=== PATIENT | female | born 1975 | race Caucasian/White ===

== ENCOUNTER 2022-02-27 18:49 | Observation (INO) ==
[2022-02-27 20:15] LABS: Troponin I High Sensitivity 7.7 pg/ml (0-14)
[2022-02-27 20:26] LABS: Alanine Aminotransferase 17 U/L (7-52); Albumin Globulin Ratio 1.4 (0.9-2); Alkaline Phosphatase 39 U/L (34-104); Anion Gap 9 (3-11); BUN Creatinine Ratio 16.5 (10-20); Bilirubin,Total 0.4 mg/dl (0.2-1.0); Blood Urea Nitrogen 13 mg/dl (6-23); Calcium 6.7 mg/dl (8.5-10.1); Carbon Dioxide 27 mmol/L (21-32); Chloride 103 mmol/L (98-107); Creatinine Clr Calc Pharmacy 100.5 ml/min; Est GFR (African American) 102.6 ml/min; Est GFR (Non-African American) 88.5 ml/min; Globulin 2.8 gm/dl (2.5-4.0); Glucose 96 mg/dl (70-99(Fasting)); Sodium 139 mmol/L (136-145); Total Protein 6.8 gm/dl (6.0-8.3)
[2022-02-27] MEDS ORDERED: CALCIUM CHLORIDE 10% 1,000 MG in DEXTROSE 5% 50 ML IV STA (20:43)
[2022-02-27] MEDS ORDERED: SODIUM CHLORIDE 0.9% 1000ML 1,000 ML IV ONE (20:43)
[2022-02-27] MEDS ORDERED: LORazepam 2 MG/2 ML SYR IV STA (20:43)
--- NOTE | 2022-02-27 20:47 | Emergency Department Note ---
Impression & Plan Hypocalcemia, Hypomagnesemia ED Provider Note NAME: KATHIE TORRES AGE: 46 SEX: F : 1975 ARRIVES VIA: Walk-In INFORMANT: Patient, ED PROVIDER(S): Gianfranco Trent DO CHIEF COMPLAINT: Numbness and tingling HPI: The patient is a 46-year-old female who presented to the emergency department for an evaluation of numbness and tingling. The patient started noticing numbness and tingling over the course the last few days. She is 2 days status post thyroidectomy. The patient had thyroidectomy due to multiple thyroid nodules at [facility]. The patient states that over the last few days she has noticed numbness and tingling over both lower extremities. She also notices jerking sensation with her arms and legs and she states her muscles feel tense. She denies having any shortness of breath. She does complain of so me chest tightness which she thinks is across her anterior chest. She denies have any lower extremity swelling. She has no abdominal pain. She denies having any fever. ROS: See above HPI for pertinent positives & negatives. A total of 10 systems reviewed and were otherwise negative. PAST MEDICAL HISTORY: See Below PAST SURGICAL HISTORY: See Below FAMILY HISTORY: See Below SOCIAL HISTORY: See Below HOME MEDICATIONS: See Below ALLERGIES: See Below VITALS: See Below PHYSICAL EXAMINATION: GENERAL: Patient is awake alert in no acute distress patient is resting comfo rtably and showing no signs of anxiety EYES: The conjunctivae are clear. The pupils are round and reactive. EARS, NOSE, MOUTH AND THROAT: The nose is without any evidence of any deformity. NECK: The neck is nontender and supple. RESPIRATORY: Normal respiratory effort is noted there is no evidence of wheezing rhonchi or rales CARDIOVASCULAR: Regular rate and rhythm noted there no murmurs rubs or gallops normal S1 normal S2. GASTROINTESTINAL: The abdomen is soft. Abdomen is nontender. MUSCULOSKELETAL/EXTREMITIES: There is no evidence of gross deformity full range of motion is noted in the hips and shoulders. SKIN: There is no obvious evidence of any rash. There are no petechiae, pallor o r cyanosis noted. NEUROLOGIC: Patient is awake alert and oriented x3 strength is symmetric patellar reflexes are 2+ bilaterally. Positive Cvosteks sign MEDICAL DECISION MAKING: Patient is a 46-year-old female who presented to the emergency department for an evaluation of muscle excitability. The patient recently had her thyroid removed. The patient was found to have symptomatic hypocalcemia. She was treated with IV calcium and IV magnesium in the emergency department. I discussed patient's laboratory and radiographic studies with her. I also di sc[facility] have agreed to evaluate the patient in the emergency department for further management and disposition. Triage Nursing notes reviewed. Prior medical records reviewed Vital Signs: reviewed and remarkable for no significant abnormalities Differential diagnosis: Infection, dehydration, metabolic abnormality, hypo/hyperglycemia, electrolyte disturbance, anemia, hypoxia, cardiac sources, intracerebral event, toxicologic, neurologic, as well as other pathologies. ER treatment provided: See below Diagnostics interpreted by me: ECG: EG was obtained in the emergency department. My interpretation is normal sinus rhythm at 80 bpm. There is no ectopy. QTC prolongation was noted. No previous tracing was available. Cardiac Monitoring: An order was placed for continuous cardiac monitoring. The monitor shows a rate of 70 bpm with sinus rhythm. Laboratory studies: As stated above and show below. Imaging studies: See below Consultation(s): I discussed this case with Dr. Huertas who [facility]. Past Med/Surg History Medical History (Updated 02/27/22 @ 21:41 by Gianfranco Trent DO) Thyroid nodule Surgical History (Updated 02/27/22 @ 21:10 by Tessie Fang DO) H/O thyroidectomy Social History Smoking Status: Current every day smoker Preferred Language: [place] Feels Safe at Home: Yes Results & Data (ED) Vital Signs Vital Signs - 24 hr 02/27/22 18:58 02/27/22 20:50 02/27/22 20:50 Temperature 36.5 C Temperature Source Temporal Artery Scan Pulse Rate 91 H Pulse Rate [Apical] 70 Pulse Rhythm [Apical] Regular Pulse Strength [Apical] Normal Respiratory Rate 18 20 Respiratory Effort / Characteristics Non-Labored Respiratory Depth Normal Normal Respiratory Pattern Regular Blood Pressure 134/81 Blood Pressure [Right Arm] 140/92 Blood Pressure Mean 98 Blood Pressure Mean [Right Arm] 108 Blood Pressure Position [Right Arm] Sitting Pulse Oximetry 96 98 Oxygen Delivery Method Room Air Room Air Room Air Sepsis New/Unexplained Change in Mental Status N/A Sepsis Action Taken by Nursing No Action Required Home Medications Current Medication List: was personally reviewed by me Laboratory Data Attestation: I reviewed the patient's lab results. Result diagrams: 02/27/22 20:29 02/27/22 20:29 Lab Results 02/27/22 02/27/22 02/27/22 Range/Units 19:30 19:30 19:30 WBC Cancelled RBC Cancelled Hgb Cancelled Hct Cancelled MCV Cancelled MCH Cancelled MCHC Cancelled RDW Std Deviation Cancelled RDW Coeff of Dory Cancelled Plt Count Cancelled MPV Cancelled Immature Gran % (Auto) Cancelled Neut % (Auto) Cancelled Lymph % (Auto) Cancelled Coffey % (Auto) Cancelled Eos % (Auto) Cancelled Baso % (Auto) Cancelled Neut # (Auto) Cancelled Lymph # (Auto) Cancelled Coffey # (Auto) Cancelled Eos # (Auto) Cancelled Baso # (Auto) Cancelled Immature Gran # (Auto) Cancelled Absolute Nucleated RBC Cancelled Nucleated RBC % (auto) Cancelled Neutrophils % (Manual) Cancelled Band Neutrophils % Cancelled Lymphocytes % (Manual) Cancelled Prolymphocyte % Cancelled Reactive Lymphs % (Man) Cancelled Monocytes % (Manual) Cancelled Eosinophils % (Manual) Cancelled Basophils % (Manual) Cancelled Metamyelocytes % (Man) Cancelled Myelocytes % (Man) Cancelled Promyelocytes % (Man) Cancelled Blast Cells % (Manual) Cancelled Plasma Cell % (Manual) Cancelled Other Cells % Cancelled Nucleated RBC % Cancelled Neutrophils # (Manual) Cancelled Band Neutrophils # Cancelled Total Absolute Neuts Cancelled Lymphocytes # (Manual) Cancelled Prolymphocyte # Cancelled Reactive Lymphs # Cancelled Total Abs Lymphocytes Cancelled Monocytes # (Manual) Cancelled Eosinophils # (Manual) Cancelled Basophils # (Manual) Cancelled Metamyelocytes # (Man) Cancelled Myelocytes # (Manual) Cancelled Promyelocytes # (Man) Cancelled Blast Cells # (Man) Cancelled Plasma Cell # (Manual) Cancelled Other Cells # Cancelled Nucleated RBCs # (Man) Cancelled Hypersegmented Neuts Cancelled Hyposegmented Neuts Cancelled Hypogranular Neuts Cancelled Large Granular Lymphs Cancelled # Lrg Granular Lymphs Cancelled Hairy Cells Cancelled Smudge Cells Cancelled Toxic Granulation Cancelled Toxic Vacuolation Cancelled Dohle Bodies Cancelled Kole Rods Cancelled Platelet Estimate Cancelled Hypogranular Platelets Cancelled Clumped Platelets Cancelled Giant Platelets Cancelled Platelet Satelliting Cancelled RBC Morphology Cancelled Polychromasia Cancelled Hypochromasia Cancelled Poikilocytosis Cancelled Basophilic Stippling Cancelled Anisocytosis Cancelled Microcytosis Cancelled Macrocytosis Cancelled Spherocytes Cancelled Pappenheimer Bodies Cancelled Sickle Cells Cancelled Target Cells Cancelled Tear Drop Cells Cancelled Ovalocytes Cancelled Stomatocytes Cancelled Ben[place] Bodies Cancelled Echinocytes Cancelled Acanthocytes (Spur) Cancelled Rouleaux Cancelled RBC Agglutinates Cancelled Schistocytes Cancelled Sezary Cell Cancelled PT Cancelled INR Cancelled APTT Cancelled PTT Ratio Cancelled Sodium 139 (136-145) mmol/L Potassium TNP Chloride 103 (98-107) mmol/L Carbon Dioxide 27 (21-32) mmol/L Anion Gap 9 (3-11) BUN 13 (6-23) mg/dl Creatinine 0.79 (0.6-1.2) mg/dl Est Cr Clr Drug Dosing 100.5 ml/min Est GFR ( Amer) 102.6 ml/min Est GFR (Non-Af Amer) 88.5 ml/min BUN/Creatinine Ratio 16.5 (10-20) Glucose 96 (70-99(Fasting)) mg/dl Calcium 6.7 L (8.5-10.1) mg/dl Ionized Calcium (1.12-1.32) mmol/L Magnesium (1.7-2.4) mg/dl Total Bilirubin 0.4 (0.2-1.0) mg/dl AST TNP ALT 17 (7-52) U/L Alkaline Phosphatase 39 (34-104) U/L Troponin I High Sens 7.7 (0-14) pg/ml Total Protein 6.8 (6.0-8.3) gm/dl Albumin 4.0 (3.4-5.0) gm/dl Globulin 2.8 (2.5-4.0) gm/dl Albumin/Globulin Ratio 1.4 (0.9-2) TSH (0.300-4.500) uIu/ml Blood Parasites ID Cancelled 09/02/27/22 02/27/22 Range/Units 19:30 20:29 20:29 WBC 9.49 RBC 4.43 Hgb 13.6 Hct 40.5 MCV 91.4 MCH 30.7 MCHC 33.6 RDW Std Deviation 46.0 RDW Coeff of Dory 13.5 Plt Count 214 MPV 10.4 Immature Gran % (Auto) 0.4 Neut % (Auto) 62.4 Lymph % (Auto) 22.8 Coffey % (Auto) 8.4 Eos % (Auto) 5.4 Baso % (Auto) 0.6 Neut # (Auto) 5.92 Lymph # (Auto) 2.16 Coffey # (Auto) 0.80 Eos # (Auto) 0.51 H Baso # (Auto) 0.06 Immature Gran # (Auto) 0.04 H Absolute Nucleated RBC Nucleated RBC % (auto) Neutrophils % (Manual) Band Neutrophils % Lymphocytes % (Manual) Prolymphocyte % Reactive Lymphs % (Man) Monocytes % (Manual) Eosinophils % (Manual) Basophils % (Manual) Metamyelocytes % (Man) Myelocytes % (Man) Promyelocytes % (Man) Blast Cells % (Manual) Plasma Cell % (Manual) Other Cells % Nucleated RBC % Neutrophils # (Manual) Band Neutrophils # Total Absolute Neuts Lymphocytes # (Manual) Prolymphocyte # Reactive Lymphs # Total Abs Lymphocytes Monocytes # (Manual) Eosinophils # (Manual) Basophils # (Manual) Metamyelocytes # (Man) Myelocytes # (Manual) Promyelocytes # (Man) Blast Cells # (Man) Plasma Cell # (Manual) Other Cells # Nucleated RBCs # (Man) Hypersegmented Neuts Hyposegmented Neuts Hypogranular Neuts Large Granular Lymphs # Lrg Granular Lymphs Hairy Cells Smudge Cells Toxic Granulation Toxic Vacuolation Dohle Bodies Kole Rods Platelet Estimate Hypogranular Platelets Clumped Platelets Giant Platelets Platelet Satelliting RBC Morphology Polychromasia Hypochromasia Poikilocytosis Basophilic Stippling Anisocytosis Microcytosis Macrocytosis Spherocytes Pappenheimer Bodies Sickle Cells Target Cells Tear Drop Cells Ovalocytes Stomatocytes Benite[place] Bodies Echinocytes Acanthocytes (Spur) Rouleaux RBC Agglutinates Schistocytes Sezary Cell PT 10.9 INR 1.0 APTT 26.9 PTT Ratio 1.0 Sodium (136-145) mmol/L Potassium Chloride (98-107) mmol/L Carbon Dioxide (21-32) mmol/L Anion Gap (3-11) BUN (6-23) mg/dl Creatinine (0.6-1.2) mg/dl Est Cr Clr Drug Dosing ml/min Est GFR ( Amer) ml/min Est GFR (Non-Af Amer) ml/min BUN/Creatinine Ratio (10-20) Glucose (70-99(Fasting)) mg/dl Calcium (8.5-10.1) mg/dl Ionized Calcium (1.12-1.32) mmol/L Magnesium (1.7-2.4) mg/dl Total Bilirubin (0.2-1.0) mg/dl AST ALT (7-52) U/L Alkaline Phosphatase (34-104) U/L Troponin I High Sens (0-14) pg/ml Total Protein (6.0-8.3) gm/dl Albumin (3.4-5.0) gm/dl Globulin (2.5-4.0) gm/dl Albumin/Globulin Ratio (0.9-2) TSH 0.236 L (0.300-4.500) uIu/ml Blood Parasites ID 02/27/22 02/27/22 02/27/22 Range/Units 20:29 20:29 21:03 WBC RBC Hgb Hct MCV MCH MCHC RDW Std Deviation RDW Coeff of Dory Plt Count MPV Immature Gran % (Auto) Neut % (Auto) Lymph % (Auto) Coffey % (Auto) Eos % (Auto) Baso % (Auto) Neut # (Auto) Lymph # (Auto) Coffey # (Auto) Eos # (Auto) Baso # (Auto) Immature Gran # (Auto) Absolute Nucleated RBC Nucleated RBC % (auto) Neutrophils % (Manual) Band Neutrophils % Lymphocytes % (Manual) Prolymphocyte % Reactive Lymphs % (Man) Monocytes % (Manual) Eosinophils % (Manual) Basophils % (Manual) Metamyelocytes % (Man) Myelocytes % (Man) Promyelocytes % (Man) Blast Cells % (Manual) Plasma Cell % (Manual) Other Cells % Nucleated RBC % Neutrophils # (Manual) Band Neutrophils # Total Absolute Neuts Lymphocytes # (Manual) Prolymphocyte # Reactive Lymphs # Total Abs Lymphocytes Monocytes # (Manual) Eosinophils # (Manual) Basophils # (Manual) Metamyelocytes # (Man) Myelocytes # (Manual) Promyelocytes # (Man) Blast Cells # (Man) Plasma Cell # (Manual) Other Cells # Nucleated RBCs # (Man) Hypersegmented Neuts Hyposegmented Neuts Hypogranular Neuts Large Granular Lymphs # Lrg Granular Lymphs Hairy Cells Smudge Cells Toxic Granulation Toxic Vacuolation Dohle Bodies Kole Rods Platelet Estimate Hypogranular Platelets Clumped Platelets Giant Platelets Platelet Satelliting RBC Morphology Polychromasia Hypochromasia Poikilocytosis Basophilic Stippling Anisocytosis Microcytosis Macrocytosis Spherocytes Pappenheimer Bodies Sickle Cells Target Cells Tear Drop Cells Ovalocytes Stomatocytes Benite[place] Bodies Echinocytes Acanthocytes (Spur) Rouleaux RBC Agglutinates Schistocytes Sezary Cell PT INR APTT PTT Ratio Sodium (136-145) mmol/L Potassium 3.5 Chloride (98-107) mmol/L Carbon Dioxide (21-32) mmol/L Anion Gap (3-11) BUN (6-23) mg/dl Creatinine (0.6-1.2) mg/dl Est Cr Clr Drug Dosing ml/min Est GFR ( Amer) ml/min Est GFR (Non-Af Amer) ml/min BUN/Creatinine Ratio (10-20) Glucose (70-99(Fasting)) mg/dl Calcium (8.5-10.1) mg/dl Ionized Calcium 0.81 L (1.12-1.32) mmol/L Magnesium 1.6 L (1.7-2.4) mg/dl Total Bilirubin (0.2-1.0) mg/dl AST 14 ALT (7-52) U/L Alkaline Phosphatase (34-104) U/L Troponin I High Sens (0-14) pg/ml Total Protein (6.0-8.3) gm/dl Albumin (3.4-5.0) gm/dl Globulin (2.5-4.0) gm/dl Albumin/Globulin Ratio (0.9-2) TSH (0.300-4.500) uIu/ml Blood Parasites ID Administered Medications Sodium Chloride (Nss 1000ml) 1,000 mls @ 999 mls/hr IV .[id number] ONE Stop: 02/27/22 21:43 Last Infusion: 02/27/22 21:29 Dose: 0 mls/hr Documented By: Admin: 02/27/22 21:06 Dose: 999 mls/hr Documented By: RSL Discontinued Medications Calcium Chloride 1,000 mg/ (Dextrose) 60 mls @ 240 mls/hr IV NOW STA Stop: 02/27/22 20:57 Last Admin: 02/27/22 21:28 Dose: 240 mls/hr Documented By: RSL Lorazepam (Lorazepam 2 Mg/1 Ml Vial) 1 mg IV NOW STA; Protocol Stop: 02/27/22 20:44 Last Admin: 02/27/22 21:06 Dose: 1 mg Documented By: RSL Imaging Data Attestation: I personally reviewed and interpreted this imaging study as justin monge: My Impression: 1 view chest x-ray was obtained in the emergency department. My interpretation is heart size is normal, no definite filtrate, no free air, no acute disease. Discharge Plan Visit Data Chief Complaint: Chest Pain Stated Complaint: THYROID ECTOMY 02/20, CHEST PAIN, TIGGLING ED Provider: Gianfranco Trent Discharge Problem: Hypocalcemia, Hypomagnesemia Patient Disposition: Being Evaluated by Hospitalist Forms Stand Alone Forms: My [facility] Referrals Referrals: PCP,NO [Physician] -
[2022-02-27 20:58] LABS: Partial Thromboplastin Time 26.9 Seconds (21.0-31.0); Prothrombin Time 10.9 Seconds (9.0-12.0)
[2022-02-27 21:02] LABS: Basophils # (auto) 0.06 K/uL (0-0.2); Basophils % (auto) 0.6 %; Eosinophils # (auto) 0.51 K/uL (0-0.50); Eosinophils % (auto) 5.4 %; Hematocrit (blood only) 40.5 % (34.1-44.9); Hemoglobin 13.6 g/dl (12.0-16.0); Immature Granulocytes # (auto) 0.04 K/uL (0.00-0.02); Immature Granulocytes % (auto) 0.4 %; Lymphocytes # (auto) 2.16 K/uL (1.2-3.4); Lymphocytes % (auto) 22.8 %; Mean Corpuscular Hemoglobin 30.7 pg (25.0-34.0); Mean Corpuscular Hgb Conc 33.6 g/dL (32.0-36.0); Mean Corpuscular Volume 91.4 fL (80.0-100.0); Mean Platelet Volume 10.4 fL (9.4-12.3); Monocytes % (auto) 8.4 %; Neutrophils # (auto) 5.92 K/uL (1.4-6.5); Neutrophils % (auto) 62.4 %; Platelet Count 214 K/uL (130-400); RDW Coefficient of Variation 13.5 % (11.5-14.5); Red Blood Count 4.43 M/uL (3.93-5.22); White Blood Count 9.49 K/ul (4.8-10.8)
[2022-02-27 21:05] LABS: Potassium 3.5 mmol/L (3.5-5.1)
--- NOTE | 2022-02-27 21:19 | History & Physical Report ---
Date of Service February 27, 2022 Assessment & Plan (1) Hypocalcemia: Plan: Hypocalcemia s/p thyroidectomy - Ca= 6.7 (correct calcium= 6.7), ionized calcium= 0.81 - symptomatic hypocalcemia in the setting of recent thyroidectomy - Was given 1g calcium chloride in ED, will f/u with calcium level 1 hour after she finishes infusion and continue repletion based on those levels. - will check vitamin D level with am labs - was started on Synthroid 125mcg after surgery; will continue. TSH low, will need f/u TSH approximately 6 weeks post op - 2 days post op; continue to have post operative pain- was taking Tylenol with codeine, will order 300/30 q4 prn for pain Hypomagnesia - Mg= 1.6 in ED; repleted in the ED - will check again in AM Anxiety/Depression - will continue home medications- Zoloft/Wellbutrin GERD - continue Prilosec VTE prophylaxis: 40 mg Lovenox q12 Diet: Regular Full Code Dispo: Admit to Med- Surg Tele (2) H/O thyroidectomy: (3) Anxiety: (4) Depression: (5) Hypomagnesemia: (6) GERD (gastroesophageal reflux disease): History of Present Illness Chief Complaint: Numbness and tingling Primary Care Provider: NO PCP 46 year old female with a past medical history of PE, anxiety, depression and 2 days s/p thyroidectomy at [facility] due to multiple thyroid nodules. Started to notice numbness and tingling over the past couple of days that started in her LE B/L and is now is also effecting her upper extremities. Has also noticed tenseness/jerking of muscles. Also has some chest tightness. She was just discharged from the hospital yesterday. At the time of discharge she was started on calcium 2000 BID and Synthroid 125mcg daily. She is still having some pain in her neck secondary to the surgery. She denies any chest pain, dyspnea, abdominal pain, headache, decreased appetite. ED course significant for ECG NSR, Calcium= 6.7 with an ionized calcium= 0.81. Vital signs have been stable. Allergies Allergy/AdvReac Type Severity Reaction Status Date / Time No Known Allergies Allergy Verified 02/27/22 22:08 Home Medications Medication Instructions Recorded Confirmed Type bupropion HCl 100 mg tablet,12 hr 150 mg PO DAILY 02/27/22 02/27/22 History sustained-release omeprazole 20 mg capsule,delayed 20 mg DAILY 02/27/22 02/27/22 History release sertraline 100 mg tablet 150 mg DAILY 02/27/22 02/27/22 History Past Med/Surg History Medical History (Updated 02/27/22 @ 22:10 by Tessie Fang DO) Thyroid nodule Surgical History (Updated 02/27/22 @ 22:21 by Tessie Fang DO) H/O thyroidectomy History of History of tonsillectomy History of tubal ligation Social History Smoking Status: Current every day smoker Cigarettes Per Day: 1; Second Hand Exposure: Yes; Do You Dip or Chew Tobacco: No; Tobacco Cessation Education Requested by Patient: No Hx Alcohol Use: Yes Hx Substance Use: No Preferred Language: Mozambican Communication Ability: Effective Slitter Service And Setter Required: No Beliefs That Will Affect Care: None Current Living Situation: Spouse Feels Safe at Home: Yes Safety Concerns: Feels Safe At This Time Assistive Devices: None Review of Systems Constitutional: no fever, no chills and no sweats Respiratory: no cough and no dyspnea Cardiovascular: no chest pain and no dyspnea Gastrointestinal: no nausea, no vomiting and no dysphagia Neurologic: + tingling and + numbness Physical Exam Physical Exam: Constitutional: well-appearing, no acute distress HEENT: NCAT, no conjunctival injection CV: regular rhythm, no murmur appreciated, extremities well-perfused, no LE edema Resp: CTABL, no wheezes/rales/rhonchi appreciated, no increased work of breathing GI: soft, nondistended, nontender, BS normoactive MSK: no gross deformities appreciated; + Troussea's sign, + Chovstek's sign Skin: warm, dry, no rash appreciated Neuro: alert, oriented, no focal neurologic deficit appreciated Results & Data Results & Data ([facility]) Vital Signs (Past 12 Hours) Vital Signs Temp Pulse Resp BP Pulse Ox O2 Del Method 02/27/22 18:58 36.5 C 91 H 18 134/81 96 Room Air Code Status & VTE Plan Code Status Full Code VTE Prophylaxis Plan VTE Prophylaxis will be ordered: Yes Supervising Physician Co-Signing Physician Notes I supervised Tessie Fang DO on this admission. I interviewed and examined the patient independently of her. The plan is as written in her note except for any following changes/exceptions: None 46yo F w/ hx of asthma and thyroid nodules. She recently had a thyroidectomy at [facility]. She started to have numbness/tingling, and she came to the ER. With significant hypocalcemia. She does not have a great recollection of the surgery and does not know if she had parathyroids removed as well or if she had reimplantation. Will replete calcium aggressively. Will get vit. D level and PTH in AM. Will need to call [facility] to get more records in the morning. Resident Activity Tracking Resident Involvement: Resident Care Provided Care Provided: Adult Hospital Medicine
[2022-02-27] MEDS ORDERED: MAGNESIUM SULFATE / D5W 1 GM/100 ML BAG IV STA (21:39)
[2022-02-27] MEDS ORDERED: ACETAMINOPHEN 325 MG TAB PO PRN (21:44)
[2022-02-27] MEDS ORDERED: ENOXAPARIN INJ 40 MG/0.4 ML SYR SQ STA (22:01)
[2022-02-27] MEDS ORDERED: Patient's ALLERGY Info needs ENTERED STA (22:03)
[2022-02-28] MEDS ORDERED: STAT IV STA ×3 (00:07→21:04)
[2022-02-28] MEDS: ACETAMINOPHEN W/CODEINE #3 1 TAB PO PRN ×5 (00:13→20:03)
[2022-02-28] MEDS ORDERED: CALCIUM GLUCONATE 10% 1,000 MG in DEXTROSE 5% 50 ML IV ONE (00:30)
[2022-02-28] MEDS: MAGNESIUM SULFATE / D5W 1 GM/100 ML BAG IV SCH ×3 (00:58→04:51)
[2022-02-28] MEDS ORDERED: CALCIUM CHLORIDE 10% 1,000 MG in DEXTROSE 5% 50 ML IV ONE (02:00)
[2022-02-28] MEDS: LEVOTHYROXINE SODIUM 125 MCG TABLET PO SCH (04:54)
--- NOTE | 2022-02-28 05:36 | Billing Data ---
Date of Service February 28, 2022 Coding Level of Care Code 33807 Initial Inpt Care Lvl 3
[2022-02-28 05:56] LABS: Hematocrit (blood only) 36.9 % (34.1-44.9); Hemoglobin 12.6 g/dl (12.0-16.0); Mean Corpuscular Hemoglobin 30.6 pg (25.0-34.0); Mean Corpuscular Hgb Conc 34.1 g/dL (32.0-36.0); Mean Corpuscular Volume 89.6 fL (80.0-100.0); Mean Platelet Volume 10.4 fL (9.4-12.3); Platelet Count 192 K/uL (130-400); RDW Coefficient of Variation 13.3 % (11.5-14.5); RDW Standard Deviation 43.6 fL (36.4-46.3); Red Blood Count 4.12 M/uL (3.93-5.22); White Blood Count 8.27 K/ul (4.8-10.8)
[2022-02-28 06:52] LABS: Albumin Globulin Ratio 1.5 (0.9-2); Albumin Level 3.5 gm/dl (3.4-5.0); Bilirubin,Total 0.4 mg/dl (0.2-1.0); Calcium 7.3 mg/dl (8.5-10.1); Creatinine Clr Calc Pharmacy 105.9 ml/min; Est GFR (African American) 109.2 ml/min; Est GFR (Non-African American) 94.3 ml/min; Globulin 2.3 gm/dl (2.5-4.0); Magnesium 2.1 mg/dl (1.7-2.4); Potassium 3.4 mmol/L (3.5-5.1); Total Protein 5.8 gm/dl (6.0-8.3)
[2022-02-28] MEDS ORDERED: CALCIUM 600MG + VIT D 400 IU TAB PO SCH (09:00)
[2022-02-28] MEDS ORDERED: ENOXAPARIN INJ 40 MG/0.4 ML SYR SQ SCH (09:00)
[2022-02-28] MEDS: buPROPion SR 150 MG TABCR PO SCH (09:13)
[2022-02-28] MEDS: SERTRALINE HCL 50 MG TABLET PO SCH (09:13)
[2022-02-28] MEDS: PANTOprazole 40 MG TAB PO SCH (09:14)
--- NOTE | 2022-02-28 09:14 | XRay Report ---
XR chest 1V portable HISTORY: Atypical Chest Pain COMPARISON: None. FINDINGS: The lungs are clear. Cardiac silhouette is normal in size. No pleural effusions. No pneumot horax. IMPRESSION: No acute process. ACT 112: Negative or not required by law. Electronically signed by: Dane Peacock M.D. 02/28/2022 9:13 AM
[2022-02-28] MEDS ORDERED: POTASSIUM CHLORIDE CRTAB 20 MEQ TABCR PO STA (09:24)
--- NOTE | 2022-02-28 09:24 | Hospitalist Progress Note ---
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 permanent will be needed Vitamin D level 13.4 and intact PTH 3.0- follow up with surgeon - she was sent home on 2GM tums per day - She was repleted with IV Calcium Chloride x 3 gm overnight- her serum calcium was 6.7 on admission and was 7.3 this morning - ionized 0.81 this evening was 0.84 - Place on CA carbonate 500mg PO QID- will check if OsCAL is formulary and if so change to this for 2.5 GM calcium daily - 1,250mg PO BID. - Calcitriol added 0.5mcg BID - Vit D3 5000 units daily orally - K 3.4 will replace - PO4 6.8 - Calcium/Po4 product 1.3 (2) Hypocalcemia: Plan: As above (3) Hypomagnesemia: Plan: Replete (4) Anxiety: Plan: Ativan 0.5 mg now dose as needed (5) Depression: Plan: Continue bupropion (6) GERD (gastroesophageal reflux disease): Plan: Continue PPI Admission and Anticipated Discharge Date Admission Date: February 27, 2022 Supervising Physician Co-Signing Physician Notes SONIA Supervision Note: I did not personally see or examine the patient today, but I verified all pineda points of SONIA Umana's assessment and plan with the following exceptions/additions: None Subjective Patient is HD #1 admission for hypocalcemia. She is s/p total thyroidectomy on at [facility]. She was discharged on with TUMS. Patient symptoms started wed night into morning and progressed. Her symptoms are improving, she is with some tingling left in her fingers this morning. Will give Calcium Carbonate with Vitamin D II tabs in morning and continue with PRN doses of IV if needed. WIll place back on her Calcium Carbonate 2GM per day and increase as needed. Calciferol added as well as 5000 units of Vitamn D for her very low vitamin D levels. She reports that her PTH level was low to prior. Was able to get in touch with her Neuroendocrine Surgeon at [facility] today and discussed with her, her PTH glands were left intact and no information back on her biopsies at this time. She recommends increasing her calcium supplementation as well as Vitamin D. Review of Systems Review of Systems: REVIEW OF SYSTEMS: Constitutional: No fever, sweats or chills Eyes: (+) blurred vision - resolved, No diplopia, no worsening or blurred vision ENT: normal hearing, no trouble swallowing Respiratory: (+) palpitations, No cough, sputum, dyspnea at rest or on exertion Cardiovascular: No chest pain, tightness or palpitations Abdomen: No pain, nausea, vomiting, diarrhea or constipation Musculoskeletal: (+) cramping (resolved), No joint pain, calf pain, swelling Neurologic: No weakness, numbness/tingling, or balance problems Psychiatric: (+) anxiety, No or depression Skin: (+) scar to anterior neck well healing Physical Exam Physical Exam: PHYSICAL EXAM: General: awake, alert, no apparent distress Head: Normocephalic, atraumatic ENT: PERRL, EOMI, no pharyngeal exudate, mucous membranes moist Neuro: AAO x 3, speech clear and appropriate, strength intact bilaterally 5/5, sensation intact and equal all extremities and dermatomes, no pronator drift, numbness and tingling to fingertips remain, tremors and weakness is resolved as well as facial tingling and muscle cramping is resolving. Chest: equal rise and fall of the chest, no accessory muscle use, no heaves or thrills, Clear to auscultation, on room air, Cardiac: Regular rate and rhythm, telemetry reviewed- no ectopy, skin warm dry, cap refill <3 seconds, peripheral pulses +2 no JVD, no murmur, no JVD, no edema GI: NABS x 4 quadrants, soft, nontender to palpation, no rebound, guarding or tenderness : Spontaneously voiding, no pain, no CVA tenderness, Extremities: Normal inspection, no peripheral edema or erythema, calfs nontender to palpation Psych: Normal mood and affect Skin: well healed scar to anterior neck Results & Data Results & Data ([facility]) Vital Signs (Past 12 Hours) Vital Signs Temp Pulse Pulse Pulse Resp BP BP 02/28/22 07:00 36.7 C 69 20 120/80 02/28/22 04:14 36.5 C 63 18 108/69 02/27/22 23:40 66 02/27/22 21:45 02/27/22 23:45 36.6 C 64 20 128/87 02/27/22 22:00 62 20 129/80 Pulse Ox O2 Del Method 02/28/22 07:00 95 Room Air 02/28/22 04:14 96 Room Air 02/27/22 23:40 02/27/22 21:45 Room Air 02/27/22 23:45 95 Room Air 02/27/22 22:00 97 Room Air Laboratory Results Abnormal lab results 02/27/22 02/27/22 02/27/22 Range/Units 19:30 19:30 20:29 Eos # (Auto) 0.51 H (0-0.50) K/uL Immature Gran # (Auto) 0.04 H (0.00-0.02) K/uL Potassium (3.5-5.1) mmol/L Calcium 6.7 L (8.5-10.1) mg/dl Ionized Calcium (1.12-1.32) mmol/L Phosphorus (2.5-4.9) mg/dl Magnesium (1.7-2.4) mg/dl Total Protein (6.0-8.3) gm/dl Globulin (2.5-4.0) gm/dl 25-OH Vitamin D Total (30-100) ng/ml TSH 0.236 L (0.300-4.500) uIu/ml PTH Intact (12.0-88.0) pg/ml 02/27/22 02/27/22 02/27/22 Range/Units 20:29 21:03 23:22 Eos # (Auto) (0-0.50) K/uL Immature Gran # (Auto) (0.00-0.02) K/uL Potassium (3.5-5.1) mmol/L Calcium 7.1 L (8.5-10.1) mg/dl Ionized Calcium 0.81 L (1.12-1.32) mmol/L Phosphorus (2.5-4.9) mg/dl Magnesium 1.6 L (1.7-2.4) mg/dl Total Protein (6.0-8.3) gm/dl Globulin (2.5-4.0) gm/dl 25-OH Vitamin D Total (30-100) ng/ml TSH (0.300-4.500) uIu/ml PTH Intact (12.0-88.0) pg/ml 02/28/22 02/28/22 02/28/22 Range/Units 05:31 05:31 05:31 Eos # (Auto) (0-0.50) K/uL Immature Gran # (Auto) (0.00-0.02) K/uL Potassium 3.4 L (3.5-5.1) mmol/L Calcium 7.3 L (8.5-10.1) mg/dl Ionized Calcium (1.12-1.32) mmol/L Phosphorus (2.5-4.9) mg/dl Magnesium (1.7-2.4) mg/dl Total Protein 5.8 L (6.0-8.3) gm/dl Globulin 2.3 L (2.5-4.0) gm/dl 25-OH Vitamin D Total 13.4 L (30-100) ng/ml TSH (0.300-4.500) uIu/ml PTH Intact 3.0 L (12.0-88.0) pg/ml 02/28/22 Range/Units 05:31 Eos # (Auto) (0-0.50) K/uL Immature Gran # (Auto) (0.00-0.02) K/uL Potassium (3.5-5.1) mmol/L Calcium (8.5-10.1) mg/dl Ionized Calcium (1.12-1.32) mmol/L Phosphorus 6.8 H (2.5-4.9) mg/dl Magnesium (1.7-2.4) mg/dl Total Protein (6.0-8.3) gm/dl Globulin (2.5-4.0) gm/dl 25-OH Vitamin D Total (30-100) ng/ml TSH (0.300-4.500) uIu/ml PTH Intact (12.0-88.0) pg/ml Diagnostic Findings Chest X-Ray 02/27/22 19:04 XR chest 1V portable HISTORY: Atypical Chest Pain COMPARISON: None. FINDINGS: The lungs are clear. Cardiac silhouette is normal in size. No pleural effusions. No pneumothorax. IMPRESSION: No acute process. ACT 112: Negative or not required by law. Electronically signed by: Dane Peacock M.D. 02/28/2022 9:13 AM Medications Administered Acetaminophen/Codeine Phosphate (Acetaminophen W/Codeine #3 1 Tab) 1 tab PO Q4 PRN PRN Reason: Pain Stop: 03/29/22 23:41 Last Admin: 02/28/22 09:15 Dose: 1 tab Documented By: Admin: 02/28/22 04:52 Dose: 1 tab Documented By: Admin: 02/28/22 00:13 Dose: 1 tab Documented By: Bupropion HCl (Bupropion Sr 150 Mg Tabcr) 150 mg PO DAILY HORACE Stop: 03/30/22 08:59 Last Admin: 02/28/22 09:13 Dose: 150 mg Documented By: ROBEL Levothyroxine Sodium (Levothyroxine Sodium 125 Mcg Tablet) 125 mcg PO DAILYBB HORACE Stop: 03/30/22 06:29 Last Admin: 02/28/22 04:54 Dose: 125 mcg Documented By: SUMAN Multivitamins/Minerals (Calcium 600mg + Vit D 400 Iu Tab) 2 tab PO BID HORACE Stop: 03/30/22 08:59 Last Admin: 02/28/22 09:13 Dose: 2 tab Documented By: ROBEL Pantoprazole Sodium (Pantoprazole 40 Mg Tab) 40 mg PO DAILY HORACE Stop: 03/30/22 08:59 Last Admin: 02/28/22 09:14 Dose: 40 mg Documented By: ROBEL Sertraline HCl (Sertraline Hcl 50 Mg Tablet) 150 mg PO DAILY HORACE Stop: 03/30/22 08:59 Last Admin: 02/28/22 09:13 Dose: 150 mg Documented By: ROBEL Discontinued Medications Enoxaparin Sodium (Enoxaparin Inj 40 Mg/0.4 Ml Syr) 40 mg SQ Q12H HORACE Stop: 03/30/22 08:59 Last Admin: 02/28/22 09:14 Dose: 40 mg Documented By: ROBEL Enoxaparin Sodium (Enoxaparin Inj 40 Mg/0.4 Ml Syr) 40 mg SQ ONE STA Stop: 02/27/22 22:02 Last Admin: 02/28/22 00:06 Dose: Not Given Documented By: Sodium Chloride (Nss 1000ml) 1,000 mls @ 999 mls/hr IV .Q1H1M ONE Stop: 02/27/22 21:43 Last Infusion: 02/27/22 21:29 Dose: 0 mls/hr Documented By: Admin: 02/27/22 21:06 Dose: 999 mls/hr Documented By: HARLAN Calcium Chloride 1,000 mg/ (Dextrose) 60 mls @ 240 mls/hr IV NOW STA Stop: 02/27/22 20:57 Last Infusion: 02/27/22 22:34 Dose: 0 mls/hr Documented By: Admin: 02/27/22 21:28 Dose: 240 mls/hr Documented By: HARLAN Magnesium Sulfate/Dextrose (Magnesium Sulfate / D5w) 1 gm in 100 mls @ 100 mls/hr IV NOW STA Stop: 02/27/22 22:38 Last Infusion: 02/27/22 23:44 Dose: 0 mls/hr Documented By: Admin: 02/27/22 22:35 Dose: 100 mls/hr Documented By: HARLAN Calcium Gluconate 1,000 mg/ (Dextrose) 60 mls @ 240 mls/hr IV NOW ONE Stop: 02/28/22 00:44 Last Infusion: 02/28/22 00:58 Dose: 0 mls/hr Documented By: Admin: 02/28/22 00:36 Dose: 240 mls/hr Documented By: Magnesium Sulfate/Dextrose (Magnesium Sulfate / D5w) 1 gm in 100 mls @ 50 mls/hr IV Q2H HORACE Stop: 02/28/22 06:14 Last Infusion: 02/28/22 06:52 Dose: 0 mls/hr Documented By: Admin: 02/28/22 04:51 Dose: 50 mls/hr Documented By: Infusion: 02/28/22 04:51 Dose: 50 mls/hr Documented By: Admin: 02/28/22 03:01 Dose: 50 mls/hr Documented By: Infusion: 02/28/22 02:58 Dose: 50 mls/hr Documented By: Admin: 02/28/22 00:58 Dose: 50 mls/hr Documented By: GERALDO Calcium Chloride 1,000 mg/ (Dextrose) 60 mls @ 240 mls/hr IV ONE ONE Stop: 02/28/22 02:14 Last Infusion: 02/28/22 03:01 Dose: 0 mls/hr Documented By: Admin: 02/28/22 02:47 Dose: 240 mls/hr Documented By: Lorazepam (Lorazepam 2 Mg/1 Ml Vial) 1 mg IV NOW STA; Protocol Stop: 02/27/22 20:44 Last Admin: 02/27/22 21:06 Dose: 1 mg Documented By: RSL Lorazepam (Lorazepam 0.5 Mg Tab) 0.5 mg PO NOW STA Stop: 02/28/22 11:15 Last Admin: 02/28/22 11:30 Dose: 0.5 mg Documented By: ROBEL Potassium Chloride (Potassium Chloride Crtab 20 Meq Tabcr) 20 meq PO NOW STA Stop: 02/28/22 09:25 Last Admin: 02/28/22 11:31 Dose: 20 meq Documented By: ROBEL PG Care Time/CCT Total # of Minutes Spent Total Time Spent with Patient: Total time spent is greater than 50% in coordination of care (as documented) at patient's floor/unit and/or counseling patient: Coding Level of Care Code 73053 Subseq Hosp Care Lvl 3 Diagnoses H/O thyroidectomy E89.0 Hypocalcemia E83.51 Hypomagnesemia E83.42 Anxiety F41.9 Depression F32.A GERD (gastroesophageal reflux disease) K21.9
[2022-02-28] MEDS ORDERED: LORazepam 0.5 MG TAB PO STA (11:14)
--- NOTE | 2022-02-28 12:40 | Electrocardiogram Report ---
Test Reason : Blood Pressure : / mmHG Vent. Rate : 080 BPM Atrial Rate : 080 BPM P-R Int : 156 ms QRS Dur : 084 ms QT Int : 414 ms P-R-T Axes : 075 042 056 degrees QTc Int : 477 ms Poor data quality, interpretation may be adversely affected Normal sinus rhythm Possible Left atrial enlargement Borderline ECG No previous ECGs available Confirmed by Agapito Aponte ([id number]) on 02/28/2022 12:40:15 PM Referred By: REFERRED SELF Confirmed By:Agapito Aponte
[2022-02-28] MEDS ORDERED: CALCIUM GLUCONATE 10% 2,000 MG in DEXTROSE 5% 50 ML IV ONE (15:13)
[2022-02-28] MEDS: CALCITRIOL 0.25 MCG CAPSULE PO SCH ×2 (15:54→20:05)
[2022-02-28] MEDS ORDERED: CALCIUM CARBONATE 500 MG CHEWABLE TAB PO SCH (17:00)
[2022-02-28] MEDS: CHOLECALCIFEROL 5,000 UNITS 125 MCG TAB PO SCH (18:00)
[2022-02-28] MEDS: CALCIUM CARBONATE 1250MG TAB PO SCH (20:06)
--- NOTE | 2022-02-28 21:06 | Communication Note ---
Date of Service: February 28, 2022 Patient presented with mildly symptomatic hypocalcemia (w/ ionized calcium down to 0.8, fairly resistant to supplementation thus far) secondary to thyroidectomy on 02/26/22. Hypoparathryoidism likely secondary to this, unknown if transient or permanent at. Ordered 2g IV calcium gluconate. Repeat iCal 8.0->8.6. Considered phos binder (phos >6.5) and considered hctz, but defer for now. Urine Ca would be a refernce lab. Continue Calcitriol and PO calcium supplement. Replete w/ periodic IV calcium. Additional 2g IV calcium gluconate ordered. Of note, IV repletion is transient in nature. Repeat labs at 6am. Consulting nephrology.
[2022-02-28] MEDS ORDERED: CALCIUM GLUCONATE IV ONE (21:15)
[2022-02-28] MEDS ORDERED: DEXTROSE 5% IV ONE (21:15)
[2022-02-28] MEDS ORDERED: hydrOXYzine HCl 10 MG TAB PO ONE (23:39)
[2022-02-28] MEDS: MELATONIN 3 MG TAB PO PRN (23:45)
[2022-03-01] MEDS: ACETAMINOPHEN W/CODEINE #3 1 TAB PO PRN ×4 (00:07→22:19)
[2022-03-01 00:26] LABS: Albumin Globulin Ratio 1.5 (0.9-2); Albumin Level 3.8 gm/dl (3.4-5.0); BUN Creatinine Ratio 11.7 (10-20); Bilirubin,Total 0.3 mg/dl (0.2-1.0); Calcium 7.1 mg/dl (8.5-10.1); Creatinine Clr Calc Pharmacy 84.5 ml/min; Est GFR (African American) 83.1 ml/min; Est GFR (Non-African American) 71.7 ml/min; Globulin 2.5 gm/dl (2.5-4.0); Magnesium 1.6 mg/dl (1.7-2.4); Phosphorus 6.7 mg/dl (2.5-4.9); Potassium 3.5 mmol/L (3.5-5.1); Total Protein 6.3 gm/dl (6.0-8.3)
[2022-03-01] MEDS ORDERED: STAT IV STA ×2 (01:29→07:55)
[2022-03-01] MEDS ORDERED: CALCIUM GLUCONATE 10% 2,000 MG in DEXTROSE 5% 50 ML IV ONE (02:00)
[2022-03-01] MEDS: LEVOTHYROXINE SODIUM 125 MCG TABLET PO SCH (06:00)
[2022-03-01 06:22] LABS: Hematocrit (blood only) 37.5 % (34.1-44.9); Hemoglobin 12.9 g/dl (12.0-16.0); Mean Corpuscular Hemoglobin 30.6 pg (25.0-34.0); Mean Corpuscular Hgb Conc 34.4 g/dL (32.0-36.0); Mean Corpuscular Volume 89.1 fL (80.0-100.0); Mean Platelet Volume 10.2 fL (9.4-12.3); Platelet Count 193 K/uL (130-400); RDW Coefficient of Variation 13.2 % (11.5-14.5); RDW Standard Deviation 42.9 fL (36.4-46.3); Red Blood Count 4.21 M/uL (3.93-5.22); White Blood Count 7.26 K/ul (4.8-10.8)
[2022-03-01 07:25] LABS: Magnesium 1.6 mg/dl (1.7-2.4); Phosphorus 7.6 mg/dl (2.5-4.9)
[2022-03-01 07:26] LABS: BUN Creatinine Ratio 12.2 (10-20); Calcium 7.2 mg/dl (8.5-10.1); Creatinine Clr Calc Pharmacy 96.8 ml/min; Est GFR (African American) 98.1 ml/min; Est GFR (Non-African American) 84.6 ml/min; Potassium 3.6 mmol/L (3.5-5.1)
[2022-03-01] MEDS ORDERED: CALCIUM GLUCONATE 10% 3,000 MG in DEXTROSE 5% 100 ML IV ONE (08:15)
[2022-03-01] MEDS: SERTRALINE HCL 50 MG TABLET PO SCH (08:42)
[2022-03-01] MEDS: CHOLECALCIFEROL 5,000 UNITS 125 MCG TAB PO SCH (08:42)
[2022-03-01] MEDS: CALCIUM CARBONATE 1250MG TAB PO SCH ×2 (08:42→20:08)
[2022-03-01] MEDS: buPROPion SR 150 MG TABCR PO SCH (08:43)
[2022-03-01] MEDS: ENOXAPARIN INJ 40 MG/0.4 ML SYR SQ SCH (08:43)
[2022-03-01] MEDS: PANTOprazole 40 MG TAB PO SCH (08:53)
[2022-03-01] MEDS: MAGNESIUM SULFATE / D5W 1 GM/100 ML BAG IV SCH ×3 (09:19→13:45)
[2022-03-01 09:30] LABS: BUN Creatinine Ratio 13.3 (10-20); Calcium 7.3 mg/dl (8.5-10.1); Creatinine Clr Calc Pharmacy 105.9 ml/min; Est GFR (African American) 109.2 ml/min; Est GFR (Non-African American) 94.3 ml/min; Potassium 3.7 mmol/L (3.5-5.1)
--- NOTE | 2022-03-01 10:33 | Hospitalist Progress Note ---
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 - Calcitriol added 0.5mcg BID - Vit D3 5000 units daily orally - K 3.4 will replace - PO4 6.8 - Calcium/Po4 product 1.3 02/19- PO4 increase to 7.6 will add on phoslo today BID, can increase to TID if needed, replete magnesium. 3 GM of Calcium Gluconate IV now. Continue with OsCAL BID 2500mg, continue with calcitriol 0.5mcg BID, Continue with cholecalciferol daily 5000 units. Check BMP and ionized calcium q6 hour for repletion. Would like to see her around serum calcium of 8 or ionized >1.0 without further IV supplementation. 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 permanent will be needed - Current therapy- PRN Calcium IV, calcitriol 0.5mcg BID, Calcium acetate 667 mg BID, Calcium Carbonate 2500mg PO BID, Vit. D 5000 units daily (3) Hypocalcemia: Plan: As above (4) Hypomagnesemia: Plan: Replete 03/01 1.6- 3 GM Magnesium (5) Anxiety: Plan: Ativan 0.5 mg now dose as needed (6) Depression: Plan: Continue bupropion (7) GERD (gastroesophageal reflux disease): Plan: Continue PPI Admission and Anticipated Discharge Date Admission Date: February 27, 2022 Supervising Physician Co-Signing Physician Notes SONIA Supervision Note: I did not personally see or examine the patient today, but I verified all pineda points of SONIA Umana's assessment and plan with the following exceptions/additions: None Subjective Patient is HD #2 admission for hypocalcemia. She is s/p total thyroidectomy on at [facility]. She was discharged on with TUMS. Patient symptoms started wed night into morning and progressed. Her symptoms are improving, she is with some tingling left in her fingers this morning. Will give Calcium Carbonate with Vitamin D II tabs in morning and continue with PRN doses of IV if needed. Will place back on her Calcium Carbonate 2GM per day and increase as needed. Calciferol added as well as 5000 units of Vitamn D for her very low vitamin D levels. She reports that her PTH level was low to prior. Was able to get in touch with her Neuroendocrine Surgeon at [facility] and discussed with her, her PTH glands were left intact and no information back on her biopsies at this time. She recommends increasing her calcium supplementation as well as Vitamin D. Required 2GM Calcium overnight. Today not much change, will replete and increase her supplementation. Will add PHOSLO (calcium acetate) in the setting of increasing PO4, although this is expected. Replete other electrolytes. May need continuous infusion of calcium if unable to maintain or make progress today. She is up and ambulating without weakness or cramps. Facial tingling comes and goes, no change to peripheral finger tingling. Review of Systems Review of Systems: REVIEW OF SYSTEMS: Constitutional: No fever, sweats or chills Eyes: (+) blurred vision - resolved, No diplopia, no worsening or blurred vision ENT: normal hearing, no trouble swallowing Respiratory: (+) palpitations, No cough, sputum, dyspnea at rest or on exertion Cardiovascular: No chest pain, tightness or palpitations Abdomen: No pain, nausea, vomiting, diarrhea or constipation Musculoskeletal: (+) cramping (resolved), No joint pain, calf pain, swelling Neurologic: No weakness, numbness/tingling, or balance problems Psychiatric: (+) anxiety, No or depression Skin: (+) scar to anterior neck well healing Physical Exam Physical Exam: PHYSICAL EXAM: General: awake, alert, no apparent distress Head: Normocephalic, atraumatic ENT: PERRL, EOMI, no pharyngeal exudate, mucous membranes moist Neuro: AAO x 3, speech clear and appropriate, strength intact bilaterally 5/5, sensation intact and equal all extremities and dermatomes, no pronator drift, numbness and tingling to fingertips remain, tremors and weakness is resolved as well as facial tingling and muscle cramping is resolving. Chest: equal rise and fall of the chest, no accessory muscle use, no heaves or thrills, Clear to auscultation, on room air, Cardiac: Regular rate and rhythm, telemetry reviewed- no ectopy, skin warm dry, cap refill <3 seconds, peripheral pulses +2 no JVD, no murmur, no JVD, no edema GI: NABS x 4 quadrants, soft, nontender to palpation, no rebound, guarding or tenderness : Spontaneously voiding, no pain, no CVA tenderness, Extremities: Normal inspection, no peripheral edema or erythema, calfs nontender to palpation Psych: Normal mood and affect Skin: well healed scar to anterior neck Results & Data Results & Data ([facility]) Vital Signs (Past 12 Hours) Vital Signs Temp Pulse Pulse Resp BP BP Pulse Ox 03/01/22 07:29 36.7 C 61 16 108/71 94 03/01/22 07:18 65 03/01/22 03:21 36.9 C 64 18 117/72 95 02/28/22 23:09 36.8 C 70 20 135/86 94 O2 Del Method 03/01/22 07:29 Room Air 03/01/22 07:18 03/01/22 03:21 Room Air 02/28/22 23:09 Room Air Laboratory Results Abnormal lab results 02/28/22 02/28/22 02/28/22 Range/Units 13:20 19:53 23:55 Glucose 108 H (70-99(Fasting)) mg/dl Calcium 7.1 L (8.5-10.1) mg/dl Ionized Calcium 0.84 L 0.80 L (1.12-1.32) mmol/L Phosphorus 6.7 H (2.5-4.9) mg/dl Magnesium 1.6 L (1.7-2.4) mg/dl 02/28/22 03/01/22 03/01/22 Range/Units 23:55 06:10 06:10 Glucose (70-99(Fasting)) mg/dl Calcium (8.5-10.1) mg/dl Ionized Calcium 0.86 L 0.90 L (1.12-1.32) mmol/L Phosphorus 7.6 H (2.5-4.9) mg/dl Magnesium 1.6 L (1.7-2.4) mg/dl 03/01/22 03/01/22 03/01/22 Range/Units 06:10 08:30 08:30 Glucose (70-99(Fasting)) mg/dl Calcium 7.2 L 7.3 L (8.5-10.1) mg/dl Ionized Calcium 0.88 L (1.12-1.32) mmol/L Phosphorus (2.5-4.9) mg/dl Magnesium (1.7-2.4) mg/dl Medications Administered Acetaminophen/Codeine Phosphate (Acetaminophen W/Codeine #3 1 Tab) 1 tab PO Q4 PRN PRN Reason: Pain Stop: 03/29/22 23:41 Last Admin: 03/01/22 08:52 Dose: 1 tab Documented By: Admin: 03/01/22 00:07 Dose: 1 tab Documented By: Admin: 02/28/22 20:03 Dose: 1 tab Documented By: Admin: 02/28/22 14:08 Dose: 1 tab Documented By: Admin: 02/28/22 09:15 Dose: 1 tab Documented By: Admin: 02/28/22 04:52 Dose: 1 tab Documented By: Admin: 02/28/22 00:13 Dose: 1 tab Documented By: Bupropion HCl (Bupropion Sr 150 Mg Tabcr) 150 mg PO DAILY [facility] Stop: 03/30/22 08:59 Last Admin: 03/01/22 08:43 Dose: 150 mg Documented By: Admin: 02/28/22 09:13 Dose: 150 mg Documented By: ROBEL Calcitriol (Calcitriol 0.25 Mcg Capsule) 0.5 mcg PO BID [facility] Stop: 03/30/22 20:59 Last Admin: 02/28/22 20:05 Dose: 0.5 mcg Documented By: Admin: 02/28/22 15:54 Dose: 0.5 mcg Documented By: ROBEL Calcium Carbonate (Calcium Carbonate 1250mg Tab) 2,500 mg PO BID [facility] Stop: 03/30/22 20:59 Last Admin: 03/01/22 08:42 Dose: 2,500 mg Documented By: Admin: 02/28/22 20:06 Dose: 2,500 mg Documented By: LAURA Enoxaparin Sodium (Enoxaparin Inj 40 Mg/0.4 Ml Syr) 40 mg SQ DAILY [facility] Stop: 03/31/22 08:59 Last Admin: 03/01/22 08:43 Dose: 40 mg Documented By: ADILENE Magnesium Sulfate/Dextrose (Magnesium Sulfate / D5w) 1 gm in 100 mls @ 50 mls/hr IV Q2H [facility] Stop: 03/01/22 14:14 Last Admin: 03/01/22 09:19 Dose: 50 mls/hr Documented By: ADILENE Levothyroxine Sodium (Levothyroxine Sodium 125 Mcg Tablet) 125 mcg PO DAILYBB [facility] Stop: 03/30/22 06:29 Last Admin: 03/01/22 06:00 Dose: 125 mcg Documented By: Admin: 02/28/22 04:54 Dose: 125 mcg Documented By: SUMAN Melatonin (Melatonin 3 Mg Tab) 3 mg PO HS PRN PRN Reason: Sleep Stop: 03/30/22 23:38 Last Admin: 02/28/22 23:45 Dose: 3 mg Documented By: LAURA Pantoprazole Sodium (Pantoprazole 40 Mg Tab) 40 mg PO DAILY [facility] Stop: 03/30/22 08:59 Last Admin: 03/01/22 08:53 Dose: 40 mg Documented By: Admin: 02/28/22 09:14 Dose: 40 mg Documented By: ROBEL Sertraline HCl (Sertraline Hcl 50 Mg Tablet) 150 mg PO DAILY [facility] Stop: 03/30/22 08:59 Last Admin: 03/01/22 08:42 Dose: 150 mg Documented By: Admin: 02/28/22 09:13 Dose: 150 mg Documented By: ROBEL Vitamin D (Cholecalciferol 5,000 Units 125 Mcg Tab) 5,000 units PO QAM [facility] Stop: 03/30/22 16:14 Last Admin: 03/01/22 08:42 Dose: 5,000 units Documented By: Admin: 02/28/22 18:00 Dose: 5,000 units Documented By: ROBEL Discontinued Medications Calcium Carbonate (Calcium Carbonate 500 Mg Chewable Tab) 500 mg PO QID [facility] Stop: 03/30/22 16:59 Last Admin: 02/28/22 15:53 Dose: 500 mg Documented By: ROBEL Enoxaparin Sodium (Enoxaparin Inj 40 Mg/0.4 Ml Syr) 40 mg SQ Q12H [facility] Stop: 03/30/22 08:59 Last Admin: 02/28/22 09:14 Dose: 40 mg Documented By: ROBEL Enoxaparin Sodium (Enoxaparin Inj 40 Mg/0.4 Ml Syr) 40 mg SQ ONE STA Stop: 02/27/22 22:02 Last Admin: 02/28/22 00:06 Dose: Not Given Documented By: Hydroxyzine HCl (Hydroxyzine Hcl 10 Mg Tab) 10 mg PO ONE ONE Stop: 02/28/22 23:40 Last Admin: 03/01/22 00:06 Dose: 10 mg Documented By: LAURA Sodium Chloride (Nss 1000ml) 1,000 mls @ 999 mls/hr IV .Q1H1M ONE Stop: 02/27/22 21:43 Last Infusion: 02/27/22 21:29 Dose: 0 mls/hr Documented By: Admin: 02/27/22 21:06 Dose: 999 mls/hr Documented By: HARLAN Calcium Chloride 1,000 mg/ (Dextrose) 60 mls @ 240 mls/hr IV NOW STA Stop: 02/27/22 20:57 Last Infusion: 02/27/22 22:34 Dose: 0 mls/hr Documented By: RSVashti Admin: 02/27/22 21:28 Dose: 240 mls/hr Documented By: HARLAN Magnesium Sulfate/Dextrose (Magnesium Sulfate / D5w) 1 gm in 100 mls @ 100 mls/hr IV NOW STA Stop: 02/27/22 22:38 Last Infusion: 02/27/22 23:44 Dose: 0 mls/hr Documented By: Admin: 02/27/22 22:35 Dose: 100 mls/hr Documented By: HARLAN Calcium Gluconate 1,000 mg/ (Dextrose) 60 mls @ 240 mls/hr IV NOW ONE Stop: 02/28/22 00:44 Last Infusion: 02/28/22 00:58 Dose: 0 mls/hr Documented By: Admin: 02/28/22 00:36 Dose: 240 mls/hr Documented By: Magnesium Sulfate/Dextrose (Magnesium Sulfate / D5w) 1 gm in 100 mls @ 50 mls/hr IV Q2H [facility] Stop: 02/28/22 06:14 Last Infusion: 02/28/22 06:52 Dose: 0 mls/hr Documented By: Admin: 02/28/22 04:51 Dose: 50 mls/hr Documented By: Infusion: 02/28/22 04:51 Dose: 50 mls/hr Documented By: Admin: 02/28/22 03:01 Dose: 50 mls/hr Documented By: Infusion: 02/28/22 02:58 Dose: 50 mls/hr Documented By: Admin: 02/28/22 00:58 Dose: 50 mls/hr Documented By: Calcium Chloride 1,000 mg/ (Dextrose) 60 mls @ 240 mls/hr IV ONE ONE Stop: 02/28/22 02:14 Last Infusion: 02/28/22 03:01 Dose: 0 mls/hr Documented By: Admin: 02/28/22 02:47 Dose: 240 mls/hr Documented By: Calcium Gluconate 2,000 mg/ (Dextrose) 70 mls @ 240 mls/hr IV NOW ONE Stop: 02/28/22 15:30 Last Infusion: 02/28/22 17:28 Dose: 0 mls/hr Documented By: Admin: 02/28/22 15:53 Dose: 240 mls/hr Documented By: ROBEL Calcium Gluconate 2,000 mg/ (Dextrose) 120 mls @ 240 mls/hr IV NOW ONE Stop: 02/28/22 21:44 Last Infusion: 02/28/22 22:00 Dose: 0 mls/hr Documented By: Admin: 02/28/22 21:30 Dose: 240 mls/hr Documented By: LAURA Calcium Gluconate 2,000 mg/ (Dextrose) 70 mls @ 240 mls/hr IV NOW ONE Stop: 03/01/22 02:17 Last Infusion: 03/01/22 02:47 Dose: 0 mls/hr Documented By: Admin: 03/01/22 02:29 Dose: 240 mls/hr Documented By: LAURA Lorazepam (Lorazepam 2 Mg/1 Ml Vial) 1 mg IV NOW STA; Protocol Stop: 02/27/22 20:44 Last Admin: 02/27/22 21:06 Dose: 1 mg Documented By: HARLAN Lorazepam (Lorazepam 0.5 Mg Tab) 0.5 mg PO NOW STA Stop: 02/28/22 11:15 Last Admin: 02/28/22 11:30 Dose: 0.5 mg Documented By: ROBEL Multivitamins/Minerals (Calcium 600mg + Vit D 400 Iu Tab) 2 tab PO BID [facility] Stop: 03/30/22 08:59 Last Admin: 02/28/22 09:13 Dose: 2 tab Documented By: ROBEL Potassium Chloride (Potassium Chloride Crtab 20 Meq Tabcr) 20 meq PO NOW STA Stop: 02/28/22 09:25 Last Admin: 02/28/22 11:31 Dose: 20 meq Documented By: ROBEL PG Care Time/CCT Total # of Minutes Spent Total Time Spent with Patient: Total time spent is greater than 50% in coordination of care (as documented) at patient's floor/unit and/or counseling patient: Coding Level of Care Code 72169 Subseq Hosp Care Lvl 3 Diagnoses H/O thyroidectomy E89.0 Hypoparathyroidism 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
[2022-03-01] MEDS: CALCIUM ACETATE 667 MG CAP/TAB PO SCH ×2 (11:27→20:08)
[2022-03-01] MEDS: CALCITRIOL 0.25 MCG CAPSULE PO SCH ×2 (11:27→20:08)
--- NOTE | 2022-03-01 11:27 | Nephrology Consultation ---
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 Mild hyperphosphatemia expected and no additional treatment for phosphorous is required at this time. Parathyroid tissues reportedly left intact suggesting that this will hopefully be a transient condition. Mireya is aware of the risks. Calcium is being replaced appropriately. Thankfully, she is not showing signs/symptoms of hypocalcemia at this time. Magnesium replacement will be essential to management. Magnesium sulf ate 3 grams IV provided this AM. Continue IV replacement with calcium gluconate provided pending ionized calcium <1. Continue oral calcium replacement with calcium carbonate. Mireya also remains on PO calcium acetate. Continue calcitriol and D3 as Rx. Evaluation notable for normal kidney function and 25OH D deficiency. D3 replacement will be essential. Calcitriol may be stopped once serum calcium normalizes. Q6 monitoring of metabolic profile is being provided. Monitor serum magnesium daily while inpatient. History of Present Illness Reason for Consultation: Hypocalcemia Requesting Physician: Rissa Carter MD Attending Physician: Rissa Carter MD History of Present Illness Mrs. Mireya Simmons is a 46 year-old female currently POD #4 s/p thyroidectomy who was admitted to [facility] with symptomatic hypocalcemia. Thyroidectomy performed on February 25 at [facility] for multinodular thyroid. No pathology availabe at this time. By report parathyroid glands were left intact. Mireya was discharged POD#1 and presented to [facility] the following day with carpal spasms, numbness and tingling. She was admitted with hypocalcemia, hyperphosphatemia, and hypomagnesemia. PTH notably low at 3. IV and PO electrolyte replacement has been provided. Creatinine normal. There were no reported complications with surgery. Mireya reports some appropriate soreness but denies significant pain. Paraesthesias, numbness, tingling have resolved. QTc 477 on admission. Tolerating PO calcium replacement. 25OH D 13.4. Current replacement includes calcium acetate 667 BID and calcium carbonate 2500 mg BID PO and 2 grams of IV calcium gluconate provided this AM. Calcitriol 0.5 mcg BID and D3 5000 units daily are also being provided. Allergies Allergy/AdvReac Type Severity Reaction Status Date / Time No Known Allergies Allergy Verified 02/28/22 06:40 Home Medications Medication Instructions Recorded Confirmed Type bupropion HCl 100 mg tablet,12 hr 150 mg PO DAILY 02/27/22 02/27/22 History sustained-release omeprazole 20 mg capsule,delayed 20 mg DAILY 02/27/22 02/27/22 History release sertraline 100 mg tablet 150 mg DAILY 02/27/22 02/27/22 History Patient History Medical History Thyroid nodule Surgical History H/O thyroidectomy History of History of tonsillectomy History of tubal ligation Social History Smoking Status: Current every day smoker Cigarettes Per Day: 1; Second Hand Exposure: Yes; Hx Alcohol Use: Yes Hx Substance Use: No Preferred Language: Armenian Communication Ability: Effective 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 Beliefs That Will Affect Care: None Current Living Situation: Spouse Feels Safe at Home: Yes Assistive Devices: None Review of Systems Review of Systems: All systems reviewed & are unremarkable except as noted in HPI & below Physical Exam Constitutional: well developed; no acute distress Eyes: no scleral abnormality and no corneal abnormality Respiratory: normal respiratory effort Auscultation: lungs clear to auscultation bilaterally Cardiovascular: Rate/Rhythm: regular rate Heart Sounds: normal S1 and normal S2 Extremities: no edema Musculoskeletal: Extremities: no cyanosis and no clubbing Skin: normal turgor; no lesions Neurologic: Motor/Sensory: no tremor and no asterixis Psychiatric: Orientation: alert and oriented x 3 Results & Data ([facility]) Vital Signs (Past 12 Hours) Vital Signs Temp Pulse Pulse Resp BP BP Pulse Ox 03/01/22 07:29 36.7 C 61 16 108/71 94 03/01/22 07:18 65 03/01/22 03:21 36.9 C 64 18 117/72 95 O2 Del Method 03/01/22 07:29 Room Air 03/01/22 07:18 03/01/22 03:21 Room Air Laboratory Results Laboratory Results - last 24 hr 02/28/22 02/28/22 02/28/22 13:20 14:11 19:53 WBC RBC Hgb Hct MCV MCH MCHC RDW Std Deviation RDW Coeff of Dory Plt Count MPV Sodium Potassium Chloride Carbon Dioxide Anion Gap BUN Creatinine Est Cr Clr Drug Dosing Est GFR ( Amer) Est GFR (Non-Af Amer) BUN/Creatinine Ratio Glucose Calcium Ionized Calcium 0.84 L Cancelled 0.80 L Phosphorus Magnesium Total Bilirubin AST ALT Alkaline Phosphatase Total Protein Albumin Globulin Albumin/Globulin Ratio 02/28/22 02/28/22 03/01/22 23:55 23:55 06:10 WBC 7.26 RBC 4.21 Hgb 12.9 Hct 37.5 MCV 89.1 MCH 30.6 MCHC 34.4 RDW Std Deviation 42.9 RDW Coeff of Dory 13.2 Plt Count 193 MPV 10.2 Sodium 139 Potassium 3.5 Chloride 105 Carbon Dioxide 24 Anion Gap 10 BUN 11 Creatinine 0.94 Est Cr Clr Drug Dosing 84.5 Est GFR ( Amer) 83.1 Est GFR (Non-Af Amer) 71.7 BUN/Creatinine Ratio 11.7 Glucose 108 H Calcium 7.1 L Ionized Calcium 0.86 L Phosphorus 6.7 H Magnesium 1.6 L Total Bilirubin 0.3 AST 15 ALT 17 Alkaline Phosphatase 43 Total Protein 6.3 Albumin 3.8 Globulin 2.5 Albumin/Globulin Ratio 1.5 03/01/22 03/01/22 03/01/22 06:10 06:10 06:10 WBC RBC Hgb Hct MCV MCH MCHC RDW Std Deviation RDW Coeff of Dory Plt Count MPV Sodium 140 Potassium 3.6 Chloride 105 Carbon Dioxide 26 Anion Gap 9 BUN 10 Creatinine 0.82 Est Cr Clr Drug Dosing 96.8 Est GFR ( Amer) 98.1 Est GFR (Non-Af Amer) 84.6 BUN/Creatinine Ratio 12.2 Glucose 85 Calcium 7.2 L Ionized Calcium 0.90 L Phosphorus 7.6 H Magnesium 1.6 L Total Bilirubin AST ALT Alkaline Phosphatase Total Protein Albumin Globulin Albumin/Globulin Ratio 03/01/22 03/01/22 08:30 08:30 WBC RBC Hgb Hct MCV MCH MCHC RDW Std Deviation RDW Coeff of Dory Plt Count MPV Sodium 139 Potassium 3.7 Chloride 105 Carbon Dioxide 25 Anion Gap 9 BUN 10 Creatinine 0.75 Est Cr Clr Drug Dosing 105.9 Est GFR ( Amer) 109.2 Est GFR (Non-Af Amer) 94.3 BUN/Creatinine Ratio 13.3 Glucose 81 Calcium 7.3 L Ionized Calcium 0.88 L Phosphorus Magnesium Total Bilirubin AST ALT Alkaline Phosphatase Total Protein Albumin Globulin Albumin/Globulin Ratio PG Care Time/CCT Total # of Minutes Spent Total Time Spent with Patient: Total time spent is greater than 50% in coordination of care (as documented) at patient's floor/unit and/or counseling patient: Coding Level of Care Code 26032 Inpt Consult Level 4 Diagnoses H/O thyroidectomy E89.0 Hypocalcemia E83.51 Hypomagnesemia E83.42 Hyperphosphatemia E83.39
[2022-03-01 15:02] LABS: BUN Creatinine Ratio 13.6 (10-20); Calcium 8.1 mg/dl (8.5-10.1); Est GFR (African American) 99.5 ml/min; Est GFR (Non-African American) 85.9 ml/min; Potassium 3.8 mmol/L (3.5-5.1)
[2022-03-01 21:29] LABS: BUN Creatinine Ratio 12.8 (10-20); Calcium 7.7 mg/dl (8.5-10.1); Creatinine Clr Calc Pharmacy 92.3 ml/min; Est GFR (African American) 92.6 ml/min; Est GFR (Non-African American) 79.9 ml/min; Potassium 3.9 mmol/L (3.5-5.1)
[2022-03-01] MEDS: MELATONIN 3 MG TAB PO PRN (22:19)
[2022-03-02] MEDS: LEVOTHYROXINE SODIUM 125 MCG TABLET PO SCH (05:53)
[2022-03-02] MEDS: ACETAMINOPHEN W/CODEINE #3 1 TAB PO PRN ×3 (05:55→23:05)
[2022-03-02 07:33] LABS: Calcium 7.3 mg/dl (8.5-10.1); Potassium 3.5 mmol/L (3.5-5.1)
[2022-03-02 07:39] LABS: BUN Creatinine Ratio 14.1 (10-20); Creatinine Clr Calc Pharmacy 101.8 ml/min; Est GFR (African American) 104.2 ml/min; Est GFR (Non-African American) 89.9 ml/min
[2022-03-02] MEDS ORDERED: STAT IV STA (08:11)
[2022-03-02] MEDS ORDERED: POTASSIUM CHLORIDE CRTAB 20 MEQ TABCR PO STA (08:14)
[2022-03-02] MEDS ORDERED: CALCIUM GLUCONATE 10% 2,000 MG in DEXTROSE 5% 50 ML IV ONE (08:30)
[2022-03-02] MEDS: CALCIUM CARBONATE 1250MG TAB PO SCH ×2 (08:42→21:02)
[2022-03-02] MEDS: SERTRALINE HCL 50 MG TABLET PO SCH (08:43)
[2022-03-02] MEDS: buPROPion SR 150 MG TABCR PO SCH (08:43)
[2022-03-02] MEDS: PANTOprazole 40 MG TAB PO SCH (08:43)
[2022-03-02] MEDS: CALCIUM ACETATE 667 MG CAP/TAB PO SCH ×2 (08:43→21:02)
[2022-03-02] MEDS: CALCITRIOL 0.25 MCG CAPSULE PO SCH ×2 (08:43→21:02)
[2022-03-02] MEDS: CHOLECALCIFEROL 5,000 UNITS 125 MCG TAB PO SCH (08:44)
[2022-03-02] MEDS: ENOXAPARIN INJ 40 MG/0.4 ML SYR SQ SCH (08:44)
--- NOTE | 2022-03-02 10:39 | Nephrology Progress Note ---
Date of Service March 02, 2022 Assessment & Plan (1) H/O thyroidectomy: (2) Hypocalcemia: (3) Hypomagnesemia: (4) Hyperphosphatemia: Plan Acute hypoparathyroidism following thyroidectomy. Mild hyperphosphatemia expected and no additional treatment for phosphorous is required at this time. Parathyroid tissues reportedly left intact suggesting that this will hopefully be a transient condition. No signs of improvement but it Mireya is aware that recovery may take days. Calcium is being replaced appropriately. Thankfully, there are no concerning signs/symptoms related to hypocalcemia at this time. Magnesium replacement is essential to management. Serum magnesium acceptable this AM. Continue IV calcium replacement with calcium gluconate; additional 2 grams ordered this AM. Continue oral calcium replacement with calcium carbonate; consider switching to TID dosing (assure that this is not given with meals) to assist with absorption, if we do not see improvement in next 24 hours. Mireya also remains on PO calcium acetate. Continue calcitriol and D3 as Rx. Evaluation no table for normal kidney function and 25OH D deficiency. Admission and Anticipated Discharge Date Admission Date: February 27, 2022 Subjective No acute events overnight. No complaints this AM. Mild tingling in tips of fingers intermittently. No muscle spasms or cramps. Review of Systems Review of Systems: All systems reviewed & are unremarkable except as noted in HPI & below Physical Exam Constitutional: well developed; no acute distress Eyes: no scleral abnormality and no corneal abnormality Neck: trachea midline; no anterior neck swelling surgical incision site clean Respiratory: normal respiratory effort Auscultation: lungs clear to auscultation bilaterally Cardiovascular: Rate/Rhythm: regular rate Heart Sounds: normal S1 and normal S2 Extremities: no edema Musculoskeletal: Extremities: no cyanosis and no clubbing Skin: normal turgor; no lesions Neurologic: Motor/Sensory: no tremor and no asterixis Psychiatric: Orientation: alert and oriented x 3 Results & Data ([facility]) Vital Signs (Past 12 Hours) Vital Signs Temp Pulse Pulse Resp BP Pulse Ox O2 Del Method 03/02/22 07:18 65 03/02/22 07:18 36.6 C 63 16 104/66 96 Room Air 03/02/22 02:59 36.4 C L 63 16 118/76 96 Room Air Laboratory Results Laboratory Results - last 24 hr 03/01/22 03/01/22 03/01/22 14:23 14:23 20:49 Sodium 140 Potassium 3.8 Chloride 107 Carbon Dioxide 24 Anion Gap 9 BUN 11 Creatinine 0.81 Est Cr Clr Drug Dosing 98.0 Est GFR ( Amer) 99.5 Est GFR (Non-Af Amer) 85.9 BUN/Creatinine Ratio 13.6 Glucose 110 H Calcium 8.1 L Ionized Calcium 0.98 L 0.92 L Magnesium 03/01/22 03/02/22 03/02/22 20:49 06:38 08:24 Sodium 138 139 Potassium 3.9 3.5 Chloride 106 106 Carbon Dioxide 24 26 Anion Gap 8 7 BUN 11 11 Creatinine 0.86 0.78 Est Cr Clr Drug Dosing 92.3 101.8 Est GFR ( Amer) 92.6 104.2 Est GFR (Non-Af Amer) 79.9 89.9 BUN/Creatinine Ratio 12.8 14.1 Glucose 102 H 102 H Calcium 7.7 L 7.3 L Ionized Calcium Cancelled Magnesium 03/02/22 03/02/22 08:24 09:17 Sodium Potassium Chloride Carbon Dioxide Anion Gap BUN Creatinine Est Cr Clr Drug Dosing Est GFR ( Amer) Est GFR (Non-Af Amer) BUN/Creatinine Ratio Glucose Calcium Ionized Calcium 0.93 L Magnesium 2.0 PG Care Time/CCT Total # of Minutes Spent Total Time Spent with Patient: Total time spent is greater than 50% in coordination of care (as documented) at patient's floor/unit and/or counseling patient: Coding Level of Care Code 80515 Subseq Hosp Care Lvl 2 Diagnoses H/O thyroidectomy E89.0 Hypocalcemia E83.51 Hypomagnesemia E83.42 Hyperphosphatemia E83.39
--- NOTE | 2022-03-02 14:01 | Hospitalist Progress Note ---
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 permanent will be needed - Current therapy- PRN Calcium IV, calcitriol 0.5mcg BID, Calcium acetate 667 mg BID, Calcium Carbonate 2500mg PO BID, Vit. 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 She is s/p total thyroidectomy on at [facility]. She was discharged on with TUMS. Patient symptoms started wed night into morning and progressed. Her symptoms are improving, she is with some tingling left in her fingers this morn ing. Will give Calcium Carbonate with Vitamin D II tabs in morning and continue with PRN doses of IV if needed. Will place back on her Calcium Carbonate 2GM per day and increase as needed. Calciferol added as well as 5000 units of Vitamn D for her very low vitamin D levels. She reports that her PTH level was low to prior. Was able to get in touch with her Neuroendocrine Surgeon at [facility] and discussed with her, her PTH glands were left intact and no information back on her biopsies at this time. She recommends increasing her calcium supplementation as well as Vitamin D. Overall impromvement in her ionized calcium even with downtrend in her serum calcium. She did not get any further calcium supplmentation on 03/01 - 3GM IV- will recieve 2GM IV calcium now. Her magnesium is >2.0 today so no furhter supplementation. Her symptoms of tingling in her fingers is less per her reports and remains without any other systemic symptoms. Appreciate Nephrology consultation. Review of Systems Review of Systems: REVIEW OF SYSTEMS: Constitutional: No fever, sweats or chills Eyes: (+) blurred vision - resolved, No diplopia, no worsening or blurred vision ENT: normal hearing, no trouble swallowing Respiratory:No cough, sputum, dyspnea at rest or on exertion Cardiovascular: No chest pain, tightness or palpitations (resolved) Abdomen: No pain, nausea, vomiting, diarrhea or constipation Musculoskeletal: (+) cramping (resolved), No joint pain, calf pain, swelling Neurologic: No weakness, numbness/tingling, or balance problems Psychiatric: (+) anxiety, No or depression Skin: (+) scar to anterior neck well healing Physical Exam Physical Exam: PHYSICAL EXAM: General: awake, alert, no apparent distress Head: Normocephalic, atraumatic ENT: PERRL, EOMI, no pharyngeal exudate, mucous membranes moist Neuro: AAO x 3, speech clear and appropriate, strength intact bilaterally 5/5, sensation intact and equal all extremities and dermatomes, no pronator drift, numbness and tingling to fingertips remain, tremors and weakness is resolved as well as facial tingling and muscle cramping is resolving. Chest: equal rise and fall of the chest, no accessory muscle use, no heaves or thrills, Clear to auscultation, on room air, Cardiac: Regular rate and rhythm, telemetry reviewed- no ectopy, skin warm dry, cap refill <3 seconds, peripheral pulses +2 no JVD, no murmur, no edema GI: NABS x 4 quadrants, soft, nontender to palpation, no rebound, guarding or tenderness : Spontaneously voiding, no pain, no CVA tenderness, Extremities: Normal inspection, no peripheral edema or erythema, calfs nontender to palpation Psych: Normal mood and affect Skin: well healed scar to anterior neck Results & Data Results & Data ([facility]) Vital Signs (Past 12 Hours) Vital Signs Temp Pulse Pulse Resp BP Pulse Ox O2 Del Method 03/02/22 11:13 36.7 C 64 16 91/55 L 97 Room Air 03/02/22 07:18 65 03/02/22 07:18 36.6 C 63 16 104/66 96 Room Air 03/02/22 02:59 36.4 C L 63 16 118/76 96 Room Air Laboratory Results Abnormal lab results 03/01/22 03/01/22 03/01/22 Range/Units 14:23 14:23 20:49 Glucose 110 H (70-99(Fasting)) mg/dl Calcium 8.1 L (8.5-10.1) mg/dl Ionized Calcium 0.98 L 0.92 L (1.12-1.32) mmol/L 03/01/22 03/02/22 03/02/22 Range/Units 20:49 06:38 09:17 Glucose 102 H 102 H (70-99(Fasting)) mg/dl Calcium 7.7 L 7.3 L (8.5-10.1) mg/dl Ionized Calcium 0.93 L (1.12-1.32) mmol/L Diagnostic Findings none PG Care Time/CCT Total # of Minutes Spent Total Time Spent with Patient: Total time spent is greater than 50% in coordination of care (as documented) at patient's floor/unit and/or counseling patient: Coding Level of Care Code 97564 Subseq Hosp Care Lvl 3 Diagnoses H/O thyroidectomy E89.0 Hypocalcemia E83.51 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
[2022-03-02 17:11] LABS: BUN Creatinine Ratio 14.3 (10-20); Calcium 8.7 mg/dl (8.5-10.1); Est GFR (African American) 79.1 ml/min; Est GFR (Non-African American) 68.2 ml/min; Potassium 4.1 mmol/L (3.5-5.1)
[2022-03-02] MEDS: MELATONIN 3 MG TAB PO PRN (21:08)
[2022-03-02 23:20] LABS: BUN Creatinine Ratio 14.9 (10-20); Calcium 8.8 mg/dl (8.5-10.1); Creatinine Clr Calc Pharmacy 78.6 ml/min; Est GFR (African American) 76.2 ml/min; Est GFR (Non-African American) 65.8 ml/min; Potassium 3.9 mmol/L (3.5-5.1)
[2022-03-03] MEDS: LEVOTHYROXINE SODIUM 125 MCG TABLET PO SCH (05:36)
[2022-03-03 06:34] LABS: Calcium 8.4 mg/dl (8.5-10.1); Creatinine Clr Calc Pharmacy 92.3 ml/min; Est GFR (African American) 92.6 ml/min; Est GFR (Non-African American) 79.9 ml/min; Magnesium 1.8 mg/dl (1.7-2.4); Phosphorus 5.2 mg/dl (2.5-4.9); Potassium 3.7 mmol/L (3.5-5.1)
[2022-03-03] MEDS ORDERED: MAGNESIUM SULFATE / D5W 1 GM/100 ML BAG IV ONE (08:00)
[2022-03-03] MEDS: ACETAMINOPHEN W/CODEINE #3 1 TAB PO PRN ×2 (08:06→14:13)
[2022-03-03] MEDS: CALCITRIOL 0.25 MCG CAPSULE PO SCH (08:08)
[2022-03-03] MEDS: SERTRALINE HCL 50 MG TABLET PO SCH (08:08)
[2022-03-03] MEDS: buPROPion SR 150 MG TABCR PO SCH (08:08)
--- NOTE | 2022-03-03 09:17 | Nephrology Progress Note ---
Date of Service March 03, 2022 Assessment & Plan (1) H/O thyroidectomy: (2) Hypocalcemia: (3) Hypomagnesemia: (4) Hyperphosphatemia: Plan Acute hypoparathyroidism following thyroidectomy. Serum electrolytes acceptable with improving hypocalcemia. Continue vitamin D and calcium replacement. Additional magnesium supplementation ordered this aM. Zoey is responding well to treatment. She has not received IV calcium since yesterday AM. Continue calcitriol and cholecalciferol. Continue PO calcium carbonate ~2000 mg daily in divided doses. I would continue some magnesium supplement on a daily basis. Monitor labs closely. Mireya will require close outpatient follow up after discharge. Admission and Anticipated Discharge Date Admission Date: February 27, 2022 Subjective No acute events overnight. Reports itch from IV. Denies numbness or tingling. No muscle or carpopedal spasms. Overall, Mireya feels well this AM. Review of Systems Review of Systems: All systems reviewed & are unremarkable except as noted in HPI & below Physical Exam Constitutional: well developed; no acute distress Neck: trachea midline; no anterior neck swelling surgical incision Respiratory: normal respiratory effort Cardiovascular: Rate/Rhythm: regular rate Extremities: no edema Musculoskeletal: Extremities: no cyanosis Neurologic: Motor/Sensory: no tremor and no asterixis Psychiatric: Orientation: alert and oriented x 3 Results & Data ([facility]) Vital Signs (Past 12 Hours) Vital Signs Temp Pulse Pulse Resp BP Pulse Ox O2 Del Method 03/03/22 08:04 36.5 C 60 18 109/73 94 Room Air 03/03/22 03:19 36.6 C 59 L 18 109/72 93 Room Air 03/02/22 23:43 36.7 C 61 18 98/62 L 98 Room Air 03/02/22 23:00 68 Laboratory Results Laboratory Results - last 24 hr 03/02/22 03/02/22 03/02/22 09:17 16:24 16:24 Sodium 139 Potassium 4.1 Chloride 105 Carbon Dioxide 26 Anion Gap 8 BUN 14 Creatinine 0.98 Est Cr Clr Drug Dosing 81.0 Est GFR ( Amer) 79.1 Est GFR (Non-Af Amer) 68.2 BUN/Creatinine Ratio 14.3 Glucose 96 Calcium 8.7 Ionized Calcium 0.93 L 1.04 L Phosphorus Magnesium 03/02/22 03/03/22 03/03/22 22:43 05:35 05:35 Sodium 137 138 Potassium 3.9 3.7 Chloride 104 104 Carbon Dioxide 27 26 Anion Gap 6 8 BUN 15 12 Creatinine 1.01 0.86 Est Cr Clr Drug Dosing 78.6 92.3 Est GFR ( Amer) 76.2 92.6 Est GFR (Non-Af Amer) 65.8 79.9 BUN/Creatinine Ratio 14.9 14.0 Glucose 145 H 108 H Calcium 8.8 8.4 L Ionized Calcium Cancelled Phosphorus 5.2 H Magnesium 1.8 03/03/22 07:11 Sodium Potassium Chloride Carbon Dioxide Anion Gap BUN Creatinine Est Cr Clr Drug Dosing Est GFR ( Amer) Est GFR (Non-Af Amer) BUN/Creatinine Ratio Glucose Calcium Ionized Calcium 1.04 L Phosphorus Magnesium PG Care Time/CCT Total # of Minutes Spent Total Time Spent with Patient: Total time spent is greater than 50% in coordination of care (as documented) at patient's floor/unit and/or counseling patient: Coding Level of Care Code 41450 Subseq Hosp Care Lvl 2 Diagnoses H/O thyroidectomy E89.0 Hypocalcemia E83.51 Hypomagnesemia E83.42 Hyperphosphatemia E83.39
[2022-03-03] MEDS: PANTOprazole 40 MG TAB PO SCH (09:54)
[2022-03-03] MEDS: CHOLECALCIFEROL 5,000 UNITS 125 MCG TAB PO SCH (09:54)
[2022-03-03] MEDS: CALCIUM CARBONATE 500 MG CHEWABLE TAB PO SCH ×2 (09:54→12:45)
[2022-03-03] MEDS: ENOXAPARIN INJ 40 MG/0.4 ML SYR SQ SCH (09:56)
--- NOTE | 2022-03-03 13:01 | Discharge Summary ---
Date of Service March 03, 2022 Admission HPI Per Admitting Provider 46 year old female with a past medical history of PE, anxiety, depression and 2 days s/p thyroidectomy at [facility] due to multiple thyroid nodules. Started to notice numbness and tingling over the past couple of days that started in her LE B/L and is now is also effecting her upper extremities. Has also noticed tenseness/jerking of muscles. Also has some chest tightness. She was just discharged from the hospital yesterday. At the time of discharge she was started on calcium 2000 BID and Synthroid 125mcg daily. She is still having some pain in her neck secondary to the surgery. She denies any chest pain, dyspnea, abdominal pain, headache, decreased appetite. ED course significant for ECG NSR, Calcium= 6.7 with an ionized calcium= 0.81. Vital signs have been stable. 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 permanent will be needed Presented with symptaomtic hypocalcemia with calcium 6.7 Was treated with multiple doses of Calcium IV, and started on calcitriol 0.5mcg BID, Calcium Carbonate 500mg PO QID, Vit. 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 - she was sent home on 2GM tums per day - started on multimodal therapy for calcium supplementation, calcitriol, vitamin d -T#3 as needed for surigcal post-op pain given but can take plain tylenol on dc (4) Vitamin D deficiency: Continue replacement as above (5) Hypomagnesemia: Repleted and improved secondary to hungry bone syndrome s/p thyroidectomy (6) Anxiety: Ativan 0.5 mg-dose as needed (7) Depression: Continue bupropion (8) GERD (gastroesophageal reflux disease): Continue PPI Plan Dispo-stabkle for dc to home Total Time Total Time Spent Total Time Spent (In Minutes): 35 min Discharge Plan Discharge Items Patient Disposition: Home - Self-Care Reason For Visit: HYPOCALCEMIA Discharge Diagnosis: Hypocalcemia Condition on Discharge: Good Activity: Resume your previous activity Non-emergency contact: Primary Care Provider, Surgeon and Specialist Call non-emergency contact if: you have any medication questions, your symptoms worsen, your wound has increased redness, your wound has increased drainage and your wound pain has increased Follow-up/Referrals: Dane Anderson MD [Primary Care Provider] - 03/10/22 10:40 am (Please follow up within 1-2 weeks.) Diet: Regular Ambulatory Orders: Comprehensive Metabolic Panel (Routine) Timeframe: 2 Days Location: Determined by Patient Ordered By: Rissa Carter Magnesium (Routine) Timeframe: 2 Days Location: Determined by Patient Ordered By: Rissa Carter Addtl Attending Provider Instructions: Please have your calcium levels checked at the lab on 03/05/22, and have the results sent to your Cra Officer and to your Surgeon for review. Please continue to take the Vitamin D 5000 units daily, the calcitriol 500 mcg twice a day, the Tums calcium 500mg four times a day, and a magnesium supplement once a day until your Cra Officer tells you it is ok to stop them. Please keep your appointment with your Surgeon as scheduled for early March, and you should also make a follow up appointment with your Cra Officer. Pending Studies at Discharge: No Stand-Alone Forms: [facility], Smoking Cessation Medications and DC Order Prescriptions: New calcium carbonate [Tums] 200 mg calcium (500 mg) Tablet,Chewable 500 mg PO QID Qty: 120 0RF Rx Instructions: OTC calcitriol 0.5 mcg capsule 0.5 mcg PO BID Qty: 60 0RF cholecalciferol (vitamin D3) 125 mcg (5,000 unit) Tablet 5,000 unit PO QAM Qty: 30 0RF Rx Instructions: OTC magnesium 250 mg tablet 250 mg PO DAILY Qty: 30 0RF Rx Instructions: OTC Continued sertraline 100 mg tablet 150 mg DAILY bupropion HCl 100 mg tablet sustained-release 12 hr 150 mg PO DAILY omeprazole 20 mg capsule,delayed release(DR/EC) 20 mg DAILY levothyroxine 125 mcg Tablet 125 mcg PO QAM Discharge Orders: Discharge Order (Routine); Ordered 03/03/22 Ordered By: Rissa Carter Admission Data Admit Date/Time: 02/27/22 21:46 Attending Provider: Rissa Carter Admit Provider: Tessie Fang Primary Care Provider: Dane Anderson Other Providers: Dmitry Huertas ; Daniel Ma Other Interventions: Discharge Summary Assessment (RN) Last Done: 03/03/22 15:08 Coding Level of Care Code D/C DAY MANAGEMENT >30 MINS Diagnoses 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
[2022-03-03 14:46] LABS: BUN Creatinine Ratio 13.3 (10-20); Calcium 8.3 mg/dl (8.5-10.1); Est GFR (African American) 79.1 ml/min; Est GFR (Non-African American) 68.2 ml/min
--- NOTE | 2022-03-03 21:59 | Electrocardiogram Report ---
Test Reason : Blood Pressure : / mmHG Vent. Rate : 063 BPM Atrial Rate : 063 BPM P-R Int : 182 ms QRS Dur : 094 ms QT Int : 438 ms P-R-T Axes : 080 081 080 degrees QTc Int : 448 ms Normal sinus rhythm Normal ECG No previous ECGs available Confirmed by Baldomero Mccoy ([id number]) on 03/03/2022 9:59:22 PM Referred By: REFERRED SELF Confirmed By:Baldomero Mccoy
== END 2022-03-03 15:22 | disposition home or self-care (01) ==
LOC: ED 18:49 → SUATTDRO 21:46 → 2N 21:46 → INTOOBSV 21:46 → MERGE 21:46 → 2N 23:38
DX: E83.51 Hypocalcemia; R25.3 Fasciculation; K21.9 Gastro-esophageal reflux disease without esophagitis; Z98.890 Other specified postprocedural states; F17.210 Nicotine dependence, cigarettes, uncomplicated; E89.0 Postprocedural hypothyroidism; Z86.711 Personal history of pulmonary embolism; F41.8 Other specified anxiety disorders; E83.42 Hypomagnesemia; E20.8 Other hypoparathyroidism